=== PATIENT | female | born 1950 | race Caucasian/White ===

== ENCOUNTER → 2016-02-12 | Outpatient (CLI) | payer OTHER ==
--- NOTE | 2016-02-12 13:34 | MA ---
Screening Digital Mammogram With Tomosynthesis Clinical Indications: Routine screening. Technique: Standard digital cephalocaudal and tomosynthesis mediolateral oblique projections were ob tained. An additional CC view is performed of the right breast The digital images were processed by rachel Hodge computer aided detection system. Comparison: January 2015, January 2014, January 2013, January 2012 and January 2011.. Breast density: D; The breast tissue is extremely dense. The densest breast tissue is in the anterior and lower left breast. This may lower the sensitivity of mammography. Findings: CAD was reviewed. Possible subtle architectural distortion identified only on the CC view in the outer right breast. There has been progressive increased density behind the right nipple in th e lower anterior left breast. The remainder of the right and left breast are stable. Impression: Additional imaging required of each breast. Recommendation: 1. Right breast: CC spot compression view and CC tomosynthesis. If architectural dis tortion persists, proceed to ultrasound. 2. Left breast: Spot compression views of the anterior/inferior left breast. If density persists, pro ceed to ultrasound. Please fax a written or electronic order for a bilateral diagnostic mammogram and bilateral ultrasou nd to [phone]. [facility] will send a result letter to the patient. Negative mammography should not preclude additional workup of a clinically suspicious finding. The patient's information is entered into a reminder system with a target due date for her next mammo gram.
== END ==
LOC: FIMAGING 09:05
DX: Z12.31 Encounter for screening mammogram for malignant neoplasm of breast (principal)
CPT/HCPCS: G0202

== ENCOUNTER → 2016-02-14 | Outpatient (CLI) | payer OTHER ==
--- NOTE | 2016-02-14 14:37 | MA ---
Diagnostic Bilateral Digital Mammogram With Tomosynthesis Clinical Indications: Possible architectural distortion right breast. Developing density lower left b reast. Comparison: screening mammogram February 12, 2016 Technique: Bilateral true-lateral digital views and 3 spot compression views, 2 of the left breast and one of the right breast. A right CC view tomosynthesis acquisition. Breast density: D; The breast tissue is extremely dense. This may lower the sensitivity of mammograph y. Findings: CAD was reviewed. Left breast: Asymmetrical density beneath the lower left areola persists . There are no abnormal calcifications or obvious architectural distortion. Right breast: Although architectural distortion does not persists, there is a 3.3 mm well-defined rou nd nodule in the lower outer left breast. Impression: Persistent bilateral abnormalities. Recommendation: Further imaging with ultrasound, bilateral. This will be performed shortly. BIRADS 0. Additional imaging required. [facility] will send a result letter to the patient. Negative mammography should not preclude additional workup of a clinically suspicious finding. The patient's information is entered into a reminder system with a target due date for her next mammo gram.
--- NOTE | 2016-02-14 15:04 | US ---
Bilateral Breast Ultrasound History: Nodule outer right breast. Developing density lower left breast. Technique: Ultrasound exam with a high frequency linear transducer. Findings: Left breast: Corresponding to the density on the mammogram is a large 4.8 x 2.1 x 5.4 cm ov oid simple cyst. Right breast: At the 8:00 radial, 3 cm from the nipple is a small cluster of cysts measuring 7 mm. In retrospect the density on the tomosynthesis conglomerate lesion measures about 7 to 8 mm. Impression: Bilateral benign cysts. BI-RADS 2. Benign. Recommendation: Screening mammography in one year. Results and recommendation discussed with the patient in detail, who is in agreement with the plan.
== END ==
LOC: FIMAGING 13:30
PROVIDERS: ATTEND Obstetrics & Gynecology Gynecology
DX: N60.01 Solitary cyst of right breast (principal); N60.02 Solitary cyst of left breast
CPT/HCPCS: 76641; G0204; G0279

== ENCOUNTER → 2017-02-23 | Outpatient (CLI) | payer OTHER | LOC: FIMAGING 07:32 | PROVIDERS: ATTEND Obstetrics & Gynecology Gynecology | DX: Z12.31 Encounter for screening mammogram for malignant neoplasm of breast (principal) ==

== ENCOUNTER → 2018-02-24 | Outpatient (CLI) | payer OTHER | LOC: FIMAGING 07:30 | PROVIDERS: ATTEND Obstetrics & Gynecology Gynecology | DX: Z12.31 Encounter for screening mammogram for malignant neoplasm of breast (principal) ==